=== PATIENT | male | born 1960 | race Caucasian/White ===

== ENCOUNTER → 2024-12-17 | Outpatient (CLI) | payer OTHER ==
--- NOTE | 2024-12-18 06:35 | HMCIMG ---
EXAMINATION: ULTRASOUND SCREENING OF THE ABDOMINAL AORTA WITH COLOR DOPPLER. CLINICAL HISTORY: Screening for cardiovascular disorders. COMPARISON: No prior studies. TECHNIQUE: Real-time grayscale ultrasound images of the aorta. In addition, color Doppler is medically necessary to perform in order to evaluate vascularity and blood flow. FINDINGS: The proximal, mid, and distal aspects of the abdominal aorta are normal in caliber measuring 2.6 x 2.4 x 2.6 cm, 2.1 x 1.7 x 1.8 cm, and 1.8 x 1.9 x 2.0 cm in the craniocaudal, AP and transverse dimensions respectively. There is no evidence of plaques in the aorta. The velocity in the mid aorta is 86 cm/s. The right common iliac artery is normal in caliber measuring 1.0 x 1.3 x 1.0 cm. The left common iliac artery is normal in caliber measuring 1.2 x 1.2 x 0.9 cm. IMPRESSION: Mild intimal thickening in the abdominal aorta. No aneurysm. /[place]
== END | disposition home or self-care (01) ==
LOC: RAH 08:45
PROVIDERS: ATTEND Nurse Practitioner Adult Health
DX: Z13.6 Encounter for screening for cardiovascular disorders (principal)
CPT/HCPCS: 76775

== ENCOUNTER → 2025-03-06 | Outpatient (CLI) | payer OTHER ==
--- NOTE | 2025-03-07 08:33 | HMCIMG ---
EXAM: CT Cardiac calcium scoring. CLINICAL HISTORY: CAD screening. TECHNIQUE: Thin collimated axial CT cardiac images were obtained. A CT scan is done according to ALARA (As Low As Reasonably Achievable). CONTRAST: None. COMPARISON: None provided. FINDINGS: Calcium Score: VESSEL Number of lesions Volume mm3 Equi. Mass/mg Calcium score LM 1 10.4 --.-- 12.2 LAD 6 35.7 --.-- 48.6 LCX 6 45.2 --.-- 57.3 RCA 13 408.6 --.-- 583.0 Total 26 499.99 --.-- 681.2 IMPRESSION: The calcium score is 681.2. This places the patient above 75th percentile in comparison to a group of patients asymptomatic for coronary artery disease with the same age and gender. This means that >75% of males aged 65-69 have a calcium score that is lower than the patient's. /[place]
== END | disposition home or self-care (01) ==
LOC: RAH 14:54 → EDUNIT# 15:30
PROVIDERS: ATTEND Nurse Practitioner Adult Health
DX: Z13.6 Encounter for screening for cardiovascular disorders (principal)
CPT/HCPCS: 75571